=== PATIENT | male | born 1950 | race Caucasian/White ===

== ENCOUNTER → 2019-05-28 | Outpatient (CLI) | payer OTHER | LOC: M.ULTRA 13:42 → M.MRI 14:30 | DX: I65.23 Occlusion and stenosis of bilateral carotid arteries (principal); G45.9 Transient cerebral ischemic attack, unspecified ==

== ENCOUNTER → 2019-07-09 | Outpatient (CLI) | payer OTHER ==
--- NOTE | 2019-07-16 11:51 | EEG ---
[address] [address] EEG STUDY REPORT Name: JOAQUÍN CEVALLOS Room: [facility]#: [id number] Admission: 07/09/19 Attend Phys: Ricardo Cantor MD Discharge: Date of : 46 Report #: [id number] THIS REPORT FOR: //name// CC: Julia Cantor DATE OF SERVICE: 07/09/2019 The patient is being evaluated for the possibility of seizure. EEG was done by placing the electrode by standard 10-20 system of electrode placement. Both referential and sequential montages were used for recording. Background activity in this patient's EEG is about 10 Hz and 30 microvolt. It is a symmetrical activity. Photic stimulation is unremarkable. The patient became drowsy and that is associated with bilateral slowing and vertex sharp waves. Throughout the record, no active epileptiform activity was noticed. IMPRESSION: This patient's EEG does not demonstrate any active epileptiform activity. Thank you very much for this referral. <ELECTRONICALLY SIGNED> By: Ricardo Cantor MD 07/16/19 1151 [id number] Cantor MD /nt
== END ==
LOC: M.CRD 12:41
DX: R56.9 Unspecified convulsions (principal); H93.19 Tinnitus, unspecified ear